=== PATIENT | female | born 1940 | race Caucasian/White ===

== ENCOUNTER → 2020-10-12 | Outpatient (CLI) | payer MEDICARE ==
--- NOTE | 2020-11-03 10:33 | MM ---
Reason for exam: screening (asymptomatic). Last mammogram was performed 7 years and 9 months ago. History: Patient is postmenopausal. Benign right mammotome panel of the right breast, January 06, 2006. Took hormonal contraceptives for 10 years. Took estrogen for 18 years beginning at age 68. Took progesterone beginning at age 68. Physical Findings: A clinical breast exam by your physician is recommended on an annual basis and results should be correlated with mammographic findings. MG 3D Screening Mammo W/Cad Bilateral CC and MLO view(s) were taken. Prior study comparison: January 18, 2013, bilateral digital screening mammo w/CAD. The breast tissue is heterogeneously dense. This may lower the sensitivity of mammography. Finding: There are typically benign vascular calcifications in the left breast. Previous mammotome biopsy in the right breast. There is no discrete abnormality. ASSESSMENT: Benign, BI-RAD 2 RECOMMENDATION: Routine screening mammogram of both breasts in 1 year.
== END | disposition home or self-care (01) ==
LOC: RADMAMWWP 09:13
PROVIDERS: ATTEND Internal Medicine
DX: Z12.31 Encounter for screening mammogram for malignant neoplasm of breast (principal); Z78.0 Asymptomatic menopausal state; Z79.3 Long term (current) use of hormonal contraceptives
CPT/HCPCS: 77063; 77067

== ENCOUNTER 2020-10-16 06:24 | Day surgery (SDC) | payer MEDICARE ==
[~2020-10-16 06:24] MED LIST: LACTATED RINGERS 1,000 ML IV SCH; LIDOCAINE 1% (10MG/ML) FOR IV START INTRADERMA PRN
[2020-10-16 06:50] VITALS: TEMP 97.6
[2020-10-16] MEDS ORDERED: LACTATED RINGERS 1,000 ML IV ONE (06:50)
[2020-10-16] MEDS ORDERED: LIDOCAINE 1% INJ 10MG/ML (20 ML MDV) ONE (07:05)
[2020-10-16] MEDS ORDERED: PROPOFOL 10 MG/ML 20 ML VIAL IV ONE (07:05)
--- NOTE | 2020-10-16 07:21 | P.PCN ---
Date of Procedure: 10/16/20 Procedure(s) Performed: BRIEF HISTORY: Patient is a 80-year-old pleasant white female scheduled for an elective colonoscopy as a part of evaluation of prior history of colon polyps. Her last coloscopy was 5 years ago. PROCEDURE PERFORMED: Colonoscopy. PREOPERATIVE DIAGNOSIS: History of colon polyps. IV sedation per Anesthesia. PROCEDURE: After informed consent was obtained, the patient, was brought into the endoscopy unit. IV sedation was administered by Anesthesia under continuous monitoring. Digital rectal examination was normal. Initially the Olympus CF-160 flexible video colonoscope was then inserted in the rectum, gradually advanced into the cecum without any difficulty. Careful examination was performed as the scope was gradually being withdrawn. Ileocecal valve and the appendiceal orifice were visualized and appeared normal. Prep was excellent. Mucosa of the cecum, ascending colon, transverse colon, descending colon, sigmoid colon, and rectum appeared normal. Scattered sigmoid diverticulosis. Retroflexion was performed in the rectum and no lesions were seen. The patient tolerated the procedure well. IMPRESSION: Normal-appearing colon from rectum to cecum with no evidence of colorectal neoplasia . Scattered sigmoid diverticulosis RECOMMENDATIONS: Findings of this examination were discussed with the patient as well as a family. She was advised to be a high-fiber diet and take fiber supplements as needed..
[2020-10-16 07:28] VITALS: RESP 16
[2020-10-16 07:46] VITALS: BP 128/78; PULSE 76
== END 2020-10-16 07:59 | disposition home or self-care (01) ==
LOC: ORWHC2ENDO 06:24
PROVIDERS: ATTEND Internal Medicine Gastroenterology
DX: Z12.11 Encounter for screening for malignant neoplasm of colon (principal); K57.30 Diverticulosis of large intestine without perforation or abscess without bleeding; C76.50 Malignant neoplasm of unspecified lower limb; Z86.010 Personal history of colon polyps; I48.91 Unspecified atrial fibrillation; F32.9 Major depressive disorder, single episode, unspecified; K21.9 Gastro-esophageal reflux disease without esophagitis; Z96.612 Presence of left artificial shoulder joint; Z79.82 Long term (current) use of aspirin; Z79.899 Other long term (current) drug therapy; Z88.8 Allergy status to other drugs, medicaments and biological substances
CPT/HCPCS: J2001; J2704; G0105; 45378

== ENCOUNTER 2020-11-06 11:16 | Emergency (ER) | payer MEDICARE ==
[2020-11-06 11:35] VITALS: BP 131/76; PULSE 85; RESP 16; TEMP 98.1
--- NOTE | 2020-11-06 11:55 | ED ---
General Adult HPI - General Chief complaint: Extremity Injury, Lower Stated complaint: Right thigh pain Time Seen by Provider: 11/06/20 11:42 Source: patient, RN notes reviewed Mode of arrival: wheelchair Limitations: physical limitation - History of Present Illness Initial comments: Patient is a pleasant 80-year-old female presenting to the emergency Department with complaints of right anterior thigh pain. Onset of symptoms was 5 days ago. Patient was doing some moderate exercises 2 days prior to that. Patient has done similar exercises a couple times previously without significant problems. Patient has discomfort and swelling right upper anterior thigh. 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 Discomfort is mild at this time however discomfort becomes severe especially with certain movements. - Related Data Home Medications Medication Instructions Recorded Confirmed Aspirin [Adult Low Dose Aspirin EC] 81 mg PO DAILY 10/15/20 10/15/20 Escitalopram [Lexapro] 10 mg PO DAILY 10/15/20 10/15/20 Fiber Capsule 2 tab PO BID 10/15/20 L.acidoph,Paracasei, B.lactis 1 each PO DAILY 10/15/20 10/15/20 [Probiotic] Valerian Root 200 mg PO HS 10/15/20 10/15/20 buPROPion XL [Wellbutrin Xl] 300 mg PO DAILY 10/15/20 10/15/20 Previous Rx's Medication Instructions Recorded Cyclobenzaprine [Flexeril] 10 mg PO TID PRN #12 tablet 11/06/20 Allergies Allergy/AdvReac Type Severity Reaction Status Date / Time enoxaparin [From Lovenox] Allergy throat Verified 11/06/20 11:35 scratchy Review of Systems ROS Statement: Those systems with pertinent positive or pertinent negative responses have been documented in the HPI. ROS Other: All systems not noted in ROS Statement are negative. Constitutional: Denies: fever Eyes: Denies: eye pain ENT: Denies: ear pain Respiratory: Denies: cough Cardiovascular: Denies: chest pain Endocrine: Denies: fatigue Gastrointestinal: Denies: abdominal pain Genitourinary: Denies: dysuria Musculoskeletal: Reports: as per HPI. 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 Lt Shoulder replacement. Cataracts bilat. Colonoscopy Past Anesthesia/Blood Transfusion Reactions: No Reported Reaction Past Psychological History: Depression Smoking Status: Former smoker Past Alcohol Use History: Daily Past Drug Use History: None Reported - Past Family History Mother Family Medical History: No Reported History General Exam Limitations: physical limitation General appearance: alert, in no apparent distress Head exam: Present: normocephalic Eye exam: Present: normal appearance Neck exam: Present: normal inspection Respiratory exam: Present: normal lung sounds bilaterally Cardiovascular Exam: Present: regular rate, normal rhythm Expanded Peripheral pulses: 2+: Femoral (R), Posterior Tibialis (R), Dorsalis Pedis (R), Dorsalis Pedis (L) GI/Abdominal exam: Present: soft. Absent: tenderness Extremities exam: Present: other (Right anterior upper thigh with approximately 10 x 6 cm area of swelling, nonpulsatile, lateral to previous surgical incision. There is tenderness with deep palpation.) Neurological exam: Present: alert. Absent: motor sensory deficit Psychiatric exam: Present: normal affect, normal mood Skin exam: Present: normal color Course Vital Signs 11/06/20 11:27 Temperature 98.1 F Pulse Rate 85 Respiratory 16 Rate Blood Pressure 131/76 O2 Sat by Pulse 98 Oximetry Medical Decision Making - Medical Decision Making MRI was called and unable to fit patient and for ultrasound within the next few hours. Case was discussed with Dr. Foley who does recommend patient be admitted for inpatient MRI. Patient refuses he recommends CAT scan. Patient updated. Patient does refuse admission. Patient also refuses CAT scan or ultrasound. Patient is agreeable to follow-up with her doctor. Patient is made aware that there is concern for vascular abnormality including aneurysm or pseudoaneurysm as well as neoplasm or hematoma or other and could be serious. Despite this patient refuses further care and wants to go home. Patient is receptive to muscle relaxer prescription. Patient does have an MRI set up for the of this month through primary care physician and states she will do that. Disposition Clinical Impression: Leg swelling Disposition: Left Against Medical Advice Condition: Stable Instructions (If sedation given, give patient instructions): Leg Edema (ED) Additional Instructions: Please follow-up with primary care physician in the next day or 2 for recheck. MRI as scheduled, please try to get earlier MRI. Return for increased pain, swelling, fever, redness, leg problems, worsening or changing symptoms or any other concerns. Prescriptions: Cyclobenzaprine [Flexeril] 10 mg PO TID PRN #12 tablet PRN Reason: Pain Is patient prescribed a controlled substance at d/c from ED?: No Referrals: Viral Foley MD [Primary Care Provider] - 1-2 days Time of Disposition: 12:26
== END 2020-11-06 12:40 | disposition left against medical advice (07) ==
LOC: EC 11:16
DX: M79.89 Other specified soft tissue disorders (principal); M79.651 Pain in right thigh; I48.91 Unspecified atrial fibrillation; K21.9 Gastro-esophageal reflux disease without esophagitis; F32.9 Major depressive disorder, single episode, unspecified; Z87.891 Personal history of nicotine dependence; Z79.82 Long term (current) use of aspirin
CPT/HCPCS: 99283

== ENCOUNTER → 2021-10-08 | Outpatient (CLI) | payer MEDICARE ==
--- NOTE | 2021-10-08 14:28 | CT ---
EXAMINATION TYPE: CT chest wo con DATE OF EXAM: 10/08/2021 COMPARISON: None HISTORY: soft tissue sarcoma CT DLP: 241 mGycm. Automated Exposure Control for Dose Reduction was Utilized. TECHNIQUE: CT scan of the thorax is performed without IV contrast. FINDINGS: The lungs are clear of airspace interstitial density. There are 3 small vague groundglass type pulmonary nodules in the left lung the largest of which is a pproximately 4.9 cm. Statistically, these are most likely benign nodule given the history of soft tis vangie sarcoma, metastatic disease is not entirely excluded. Follow-up 3-4 months is recommended. There is no pleural effusion, pleural thickening or pneumothorax. The great vessels of the chest are normal and there is no mediastinal, hilar or axillary adenopathy. There is a right shoulder prosthesis. Limited scanning through the upper abdomen reveals 2 well defined hypodensities within the liver most likely representing benign cysts. IMPRESSION: 1. 3 sub-6 mm left pulmonary nodules which statistically most likely are benign but given the history of soft tissue sarcoma, metastatic disease is not entirely excluded. Follow-up CT chest and 3-4 adan hs is recommended to assess stability. 2. Well-circumscribed benign-appearing hypodensities within the liver most likely representing cysts.
--- NOTE | 2021-11-03 15:47 | MR ---
MRI right femur and thigh with and without contrast HISTORY: Soft tissue sarcoma Multiplanar multisequence and postcontrast images obtained through the proximal right lower extremity , patient received 5 cc Gadavist IV Patient's previous MRI exams unavailable for comparison. Correlation with plain film dated 11/04/2020 Metallic artifact is present along the proximal right femur which limits evaluation and also along th e pelvis region. There is scarring within the soft tissues laterally the proximal aspect of the right lower extremity. At the level of the vastus medialis and vastus lateralis distally, there is some mild asymmetric inc reased signal noted on T2-weighted sequences within the musculature, some fluid signal present along the fascial plane of the subcutaneous fat and muscle junction, some subcutaneous edema change. Some f atty replacement, probable muscle atrophy noted along the hamstring musculature. No abnormal enhancem ent following contrast administration. A linear focus of intermediate signal is present along the medial aspect of the right patella, axial image #9 of series 901, consider possible fracture line. Correlate for possible fracture. Scattered d iverticular changes are noted within the colon as visualized. No evident pelvic or inguinal adenopath y. IMPRESSION: Postop changes and artifact noted. Findings suggest muscle atrophy as described especiall y in the right lower extremity as described. There are some local edema changes as noted. Difficult t o exclude a patellar fracture on the right, exam is limited for evaluation.
== END | disposition home or self-care (01) ==
LOC: RADCTMAIN 13:21
PROVIDERS: ATTEND Physician Assistant
DX: C49.21 Malignant neoplasm of connective and soft tissue of right lower limb, including hip (principal)
CPT/HCPCS: 71250; 73720; A9585

== ENCOUNTER → 2021-11-15 | Outpatient (CLI) | payer MEDICARE ==
--- NOTE | 2021-11-16 10:47 | MM ---
Reason for Exam: Screening (asymptomatic). Last mammogram was performed 1 year(s) and 1 month(s) ago. Patient History: Menarche at age 15. First Full-Term at age 23. Right ovary removed at age 44. Hysterectomy at age 44. Postmenopausal. Estrogen, starting at age 68 for 10 years. Progesterone, starting at age 68. Patient used Hormonal Contraceptives for 10 years. 01/06/2006, Benign Core Biopsy on the right side. Risk Values: Cary 5 year model risk: 1.8%. NCI Lifetime model risk: 3.0%. Prior Study Comparison: 01/18/2013 Bilateral Screening Mammogram, [facility]. 01/22/2013 Left Diagnostic Mammogram, [facility]. 10/12/2020 Bilateral Screening Mammogram, [facility]. Tissue Density: The breast tissue is heterogeneously dense. This may lower the sensitivity of mammography. Findings: Analyzed By CAD. Asymmetric density upper outer left breast zone C. Additional views are recommended. No suspicious calcification seen within either breast. Overall Assessment: Incomplete: need additional imaging evaluation, BI-RAD 0 Management: Diagnostic Mammogram of the left breast. A clinical breast exam by your physician is recommended on an annual basis and results should be correlated with mammographic findings. Electronically signed and approved by: Steve Moreno M.D. Radiologis
== END | disposition home or self-care (01) ==
LOC: RADMAMWWP 09:06
PROVIDERS: ATTEND Internal Medicine
DX: Z12.31 Encounter for screening mammogram for malignant neoplasm of breast (principal); Z78.0 Asymptomatic menopausal state
CPT/HCPCS: 77063; 77067

== ENCOUNTER → 2022-08-24 | Outpatient (CLI) | payer MEDICARE ==
--- NOTE | 2022-08-24 14:43 | CT ---
EXAMINATION TYPE: CT chest wo con DATE OF EXAM: 08/24/2022 COMPARISON: Chest CT October 08, 2021 HISTORY: h/o sarcoma f/u CT DLP: 265 mGycm. Automated Exposure Control for Dose Reduction was Utilized. TECHNIQUE: CT scan of the thorax is performed without IV contrast. FINDINGS: LUNGS: Mild underlying emphysematous change with scattered mild linear scarring is redemonstrated. No significant new or Enlarging greater than 5 mm pulmonary nodules or masses. Stable 4 to 5 mm groundg lass nodule left mid lung axial image 33 noted for reference. No pleural effusion or pneumothorax see n bilaterally. MEDIASTINUM: Lack of IV contrast is noted to limit evaluation for mediastinal and especially hilar ad enopathy. There are no definitive new Greater than 1 cm mediastinal lymph nodes. No cardiomegaly or pericardial effusion is seen. Ascendi ng aorta measures up to 3.8 cm in diameter OTHER: Some simple-appearing thin-walled cysts scattered through the liver are redemonstrated. Metall ic hardware from left shoulder surgery is partially imaged causing streak artifact somewhat limiting evaluation in the upper thorax. IMPRESSION: No new or enlarging greater than 5 mm pulmonary nodules to suggest metastatic disease
--- NOTE | 2022-08-25 08:25 | MR ---
EXAMINATION TYPE: MR femur/thigh RT wo/w con DATE OF EXAM: 08/24/2022 COMPARISON: 10/08/2021 and 07/12/2021 HISTORY: 82-year-old female Follow up, Right thigh soft tissue sarcoma. History of surgery May 05. Technique: Multiplanar, multisequence images of the right femur were obtained before and after admini stration of 5 mL intravenous Gadavist gadolinium contrast. FINDINGS: Interval healing of possible previous patellar fracture. Underlying osteoarthritic change medial comp artment with extruded body of the medial meniscus redemonstrated. Extensive metal artifact from the patient's oncologic right hip arthroplasty limiting the evaluation. There is continued patchy muscular edema throughout the right thigh and generalized muscle atrophy. Some focal increased fluid signal along the anterior margin of the proximal femoral shaft continues t o show no appreciable enhancement and currently measures 6.2 cm long by 2.0 cm wide. This is in palmira rison to 6.0 x 2.0 cm on 10/08/2021 and 7.4 x 2.5 cm on 07/12/2021. Not significantly changed from the r ecent prior. No obvious abnormal enhancing soft tissue abnormality is seen. IMPRESSION: 1. 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 This limits the overall evaluation. 2. There is redemonstrated asymmetric muscle atrophy and patchy muscle edema throughout the right thi gh. A nonenhancing area of fluid signal along the anterior aspect of the upper femoral shaft is uncha nged at 6.2 x 2.0 cm (but smaller from the older 07/12/2021 prior). No obvious abnormal enhancing soft tissue is identified. 3. Interval healing of possible previous patellar fracture. Underlying osteoarthritic change at the r ight knee especially medial compartment with a chronically torn medial meniscus.
== END | disposition home or self-care (01) ==
LOC: RADCTMAIN 13:01
PROVIDERS: ATTEND Physician Assistant
DX: C46.1 Kaposi's sarcoma of soft tissue (principal); S82.001A Unspecified fracture of right patella, initial encounter for closed fracture; R53.1 Weakness
CPT/HCPCS: 71250; 73720; A9585

== ENCOUNTER → 2023-08-30 | Outpatient (CLI) | payer MEDICARE ==
--- NOTE | 2023-08-30 12:21 | XR ---
EXAMINATION TYPE: XR femur RT DATE OF EXAM: 08/30/2023 COMPARISON: NONE HISTORY: History of sarcoma and hip replacement TECHNIQUE: 4 views submitted FINDINGS: There is postsurgical change involving the right femur with hip replacement surgery. Surgic al changes in the adjacent soft tissues noted with diffuse osteopenia. Chondrocalcinosis and moderate arthropathy of the tricompartment joint space. Generalized demineralization with mild symphysis pubi s and right SI joint arthropathy. IMPRESSION: 1. Postsurgical change with no acute process identified.
--- NOTE | 2023-08-30 12:52 | CT ---
EXAMINATION TYPE: CT chest wo con DATE OF EXAM: 08/30/2023 COMPARISON: 08/24/2022 HISTORY: 83-year-old female J18.9, pneumonia, unspecified organism. TECHNIQUE: Contiguous axial scanning of the chest after without IV contrast. Coronal/sagittal reconst ructions performed. CT DLP: 297mGycm. Automatic exposure control utilized for a dose reduction. FINDINGS: Heart normal size without pericardial effusion. Ectatic ascending aorta at 3.6 cm, unchanged. Bovine configuration to the aortic arch with mild ather osclerotic arch calcifications. Prominent but nonenlarged 9 mm precarinal node. No thoracic lymphadenopathy by CT size criteria. Multifocal mild patchy peribronchial vascular groundglass right greater than left upper lobes, superi or segment right lower lobe, and bilateral basilar lower lobes, new from 08/24/2022. No pleural effusi on. Hepatic dome cyst measuring 1.4 cm redemonstrated. 4.3 cm cyst in the caudate lobe of the liver also redemonstrated. He Bones: No osseous destructive process. IMPRESSION: Multifocal mild patchy groundglass infiltrate, right greater than left upper lobes, bibasilar lower l obes, and superior segment right lower lobe. Some differential considerations include GREIGE MENDER and atypica l/COVID pneumonia.
--- NOTE | 2023-09-28 15:23 | MR ---
EXAMINATION: MR femur/thigh RT wo/w con DATE OF EXAM: 08/30/2023 COMPARISON: Right thigh MRI 08/24/2022 HISTORY: Soft tissue sarcoma Right thigh, Tumor removed, resection and XRT TECHNIQUE: Multiplanar, multisequence images of the right thigh were acquired without and with contra st. FINDINGS: BONES/MARROW: Redemonstration of oncologic longstem femoral arthroplasty, grossly normal. Otherwise, normal bone marrow signal.. SOFT TISSUES: Redemonstration of asymmetric fatty atrophy of the right thigh musculature. No mass or fluid collection. NEUROVASCULAR: Visualized neurovascular structures are normal. OTHER: Nonenhancing small fluid collection anteromedial aspect distal thigh, likely postsurgical bui ges, no change from prior exam. No mass. No lymphadenopathy. No enhancing mass or suspicious postcont rast enhancement. IMPRESSION: 1. No evidence of recurrent disease. No abnormal enhancement. 2. Redemonstration of oncologic longstem femoral arthroplasty and likely postsurgical changes anterom edial distal thigh subcutaneous fat. 3. Fatty atrophy of the right thigh musculature.
== END | disposition home or self-care (01) ==
LOC: RADCTMAIN 11:25
PROVIDERS: ATTEND Orthopaedic Surgery
DX: C49.21 Malignant neoplasm of connective and soft tissue of right lower limb, including hip (principal); C49.9 Malignant neoplasm of connective and soft tissue, unspecified; J18.9 Pneumonia, unspecified organism; Z96.641 Presence of right artificial hip joint
CPT/HCPCS: 73552; 71250; 73720; A9585

== ENCOUNTER → 2024-10-17 | Outpatient (CLI) | payer MEDICARE ==
--- NOTE | 2024-10-17 18:30 | XR ---
EXAMINATION TYPE: XR femur RT DATE OF EXAM: 10/17/2024 5:36 PM INDICATION: Patient age:Female; 84 years old; Reason for study: S72.351A, S72.001A, C49.21, Z96.641; pain COMPARISON: Right femur radiographs 09/05/2024, 08/30/2023, MR right femur/thigh 08/30/2023, 08/24/2022, TECHNIQUE: The right femur was examined in frontal and lateral projections. FINDINGS: Diffuse bone demineralization. Redemonstration of postsurgical changes from right hip arth roplasty. Hardware appears intact with appropriate alignment. There has been interval fixation platin g with screws involving the mid to distal right femur from prior fracture. There is some surrounding callus formation along the medial inferior aspect of the femur. Hardware appears intact with appropri ate alignment. No acute fracture or dislocation. Degenerative changes of the pubic symphysis. Suture material identified within the right thigh soft tissues. Chondrocalcinosis of the knee with moderate arthropathy and tricompartmental joint space narrowing identified. Right SI joint arthropathy. IMPRESSION: Postsurgical changes without evidence for acute process. [facility], , 10/17/2024 6:27 PM
== END | disposition home or self-care (01) ==
LOC: RADXRMAIN 17:07
PROVIDERS: ATTEND Physician Assistant
DX: S72.351A Displaced comminuted fracture of shaft of right femur, initial encounter for closed fracture (principal); Z98.890 Other specified postprocedural states